=== PATIENT | male | born 1975 | race Caucasian/White ===

== ENCOUNTER 2016-07-27 08:38 | Inpatient (IN) | payer MEDICARE ==
[~2016-07-27] VITALS: Ht 177.8 cm; Wt 97.1 kg
[~2016-07-27 08:38] MED LIST: NO MEDS
[2016-07-27] MEDS ORDERED: SODIUM CHLORIDE 0.9% 1L BAG IV* STA (08:59)
[2016-07-27] MEDS ORDERED: VANCOMYCIN 1 GM (PMX) 250 ML IVPB STA ×2 (08:59→15:57)
[2016-07-27] MEDS ORDERED: CLINDAMYCIN 900 MG/D5W (PMX) 50 ML IVPB STA (08:59)
[2016-07-27] MEDS ORDERED: PIPER-TAZO 3.375 GM IV (PMX) 100 ML IVPB STA (08:59)
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
[2016-07-27 09:26] LABS: ADD SCAN DIFF NO
[2016-07-27 09:33] LABS: ABNORMAL IP MESSAGE 1; HEMATOCRIT 44.7 % (42.0-52.0); MEAN CORPUSCULAR HEMOGLOBIN 32.6 pg (29.0-33.0); MEAN CORPUSCULAR HGB CONC 35.8 g/dl (32.0-37.0); MEAN PLATELET VOLUME 10.8 fl (7.4-10.4); PLATELET COUNT 217 10^3/UL (140-415); RED BLOOD COUNT 4.91 10^6/ul (4.70-6.10)
[2016-07-27 09:39] LABS: ALBUMIN 4.1 g/dl (3.3-4.9); INR 1.11; PROTIME 14.3 Sec (12.2-14.2); PT RATIO 1.1
[2016-07-27 09:41] LABS: BILIRUBIN,INDIRECT 0.7 mg/dl (0-1.1); BILIRUBIN,TOTAL 0.7 mg/dl (0.2-1.3); CREATININE 0.89 mg/dl (0.61-1.24)
[2016-07-27 09:42] LABS: ALBUMIN/GLOBULIN RATIO 0.95; CALCIUM 9.6 mg/dl (8.4-10.2); TOTAL PROTEIN 8.4 g/dl (6.1-8.1)
--- NOTE | 2016-07-27 10:09 | RADRPT ---
PROCEDURE: US DVT. CLINICAL INDICATION: Left lower extremity pain and swelling. TECHNIQUE: Multiple longitudinal and transverse images of the left lower extremity veins were obta ined with miller scale and color Doppler imaging. 2D grayscale measurements with compression, color D oppler flow, and augmentation was performed. The calf veins were interrogated as well. COMPARISON: No prior studies are available for comparison. FINDINGS: The left common femoral, superficial femoral and popliteal veins are normally compressible throughou t. Color flow demonstrates normal filling of the vessel. Normal waveforms are visualized and there is normal response to augmentation. IMPRESSION: 1. No evidence of a deep vein thrombosis involving the left lower extremity. RPTAT: [facility] Physician Lali Date Time Electronically viewed and signed by Physician Lali on 07/27/2016 10:09 /
[2016-07-27 10:24] LABS: MONOCYTE # 0.5 10^3/ul (0.3-0.9); NEUTROPHIL # 21.9 10^3/ul (1.6-7.5)
[2016-07-27 10:50] VITALS: TEMP 97.8
[2016-07-27] MEDS ORDERED: ONDANSETRON 4 MG INJ IV PRN ×2 (11:30→16:00)
[2016-07-27] MEDS ORDERED: ACETAMINOPHEN 325 MG TAB PO PRN ×2 (11:30→16:00)
[2016-07-27 12:30] VITALS: Ht 177.8 cm; Wt 97.1 kg
[2016-07-27 12:56] VITALS: BP 145/81; PULSE 89; RESP 20
[2016-07-27] MEDS ORDERED: DOCUSATE SODIUM 100 MG CAP PO PRN (16:00)
[2016-07-27] MEDS ORDERED: NACL 0.9% 3 ML SYG IV SCH (16:00)
[2016-07-27] MEDS ORDERED: LORAZEPAM 0.5 MG TAB PO PRN (16:00)
[2016-07-27] MEDS ORDERED: VANCOMYCIN IV PER PHARMACY XX SCH (16:00)
[2016-07-27] MEDS: SOD CHLORIDE 0.45% 1,000 ML IV SCH (16:11)
--- NOTE | 2016-07-27 17:10 | HP ---
DATE OF ADMISSION: 07/27/2016 TRAVEL GUIDE: Infectious disease. CHIEF COMPLAINT: Left lower extremity cellulitis. HISTORY OF PRESENT ILLNESS: This is a 41-year-old gentleman with past medical history of IV drug ab use in remission, history cervical spine abscess status post surgical intervention, and paraplegia w ho has been able to ambulate with physical therapy for the past year and who presents to [facility] secondary to having left lower extremity cellulitis with fever. The patient also has been complaining of having generalized weakness for the past week. He denies having any drug ab use since his neck surgery. He has been sober. He smokes about 1 pack of cigarettes every 3 days. He lives at home and sleeps on the couch at his parents' house. There is a pet. They have a cat t hat has been declawed. He does not recall any trauma to his left lower extremity. Upon arrival to emergency room, the patient was found to have WBC of 26.7. He was treated with vancomycin, clindamy luis, and Zosyn. He denies having any chest pain, shortness of breath, nausea, vomiting, or diarrhea . No headache, dizziness, lightheadedness. No change in visual acuity, diplopia, photophobia. No abdominal pain, nausea, vomiting, diarrhea. No headache, dizziness, lightheadedness. No change in visual acuity, diplopia, photophobia, or any other discomfort. On lower extremity Doppler, there wa s no evidence of DVT involving the left lower extremity. X-ray of the foot is pending. PAST MEDICAL AND SURGICAL HISTORY: As above per HPI. ALLERGIES: NO KNOWN DRUG ALLERGIES. HOME MEDICATIONS: Methadone. FAMILY HISTORY: Noncontributory. SOCIAL HISTORY: Positive for smoking 8 to 10 cigarettes per day. No alcohol. History of drug abus e, heroin abuse in remission. REVIEW OF SYSTEMS: As above per HPI. Otherwise, 12 review of systems has been found to be negative . PHYSICAL EXAMINATION: VITAL SIGNS: Temperature 98.5, pulse 89, respiration 20, blood pressure 145/81, oxygen 94% room air . GENERAL APPEARANCE: The patient is lying in bed comfortably without any distress. He is awake, shashank rt, oriented. He is able to answer my questions properly. EYES AND ENT: Conjunctivae and lids are normal. Pupils are normal. Extraocular normal. Hearing g rossly normal. Lips and gums are normal. Oral mucosa is moist. NECK: Supple. Trachea is midline. No lymphadenopathy. RESPIRATORY: Effort is normal. Clear to auscultation bilaterally. CARDIOVASCULAR: Normal S1, S2. Regular rhythm and rate. No murmur, no bruits, no edema. Peripher al pulses 2+ palpable. Cap refill is normal. CHEST: Normal expansion of thorax during inspiration. GASTROINTESTINAL: Abdomen is soft, nontender, not distended. Bowel sounds present. No guarding, n o rebound. GENITOURINARY: Deferred. MUSCULOSKELETAL: Upper extremities within normal limits. Right lower extremity within normal limit s. Left lower extremity, there is erythema by his ankle. It is 10 cm. It goes around his ankle. There is no compartment syndrome. It is tender to touch. NEUROLOGIC: Cranial nerves II through XII are grossly intact. PSYCHIATRIC: Normal judgment and insight. Alert and oriented x3. Mood and affect is normal. LABORATORY WORK AND IMAGING: Sodium 138, potassium 4.0, chloride 99, bicarbonate 24, BUN 13, creati nine 0.9, glucose 114, calcium 9.6. WBC 26.7, hemoglobin 16, hematocrit 44.7, platelet 217. ASSESSMENT AND PLAN: 1. Left lower extremity cellulitis with leukocytosis. We will obtain an x-ray of the foot to rule out osteomyelitis. The patient has been started on vancomycin and Zosyn. We will obtain infectious disease consultation if necessary. 2. History of drug abuse in remission. Continue methadone. 3. For deep venous thrombosis prophylaxis, we will place the patient on aspirin. 4. For gastrointestinal prophylaxis, on Pepcid. 5. We will continue to monitor patient closely. Further recommendations, management, and treatment as per clinical course. Total amount of time spent for evaluation of this patient and admission workup was 40 minutes. Dictated By: AYAKA LARKIN/JODIE Conf#: [id number] DID#: [id number]
[2016-07-27] MEDS: morphine 2 MG INJ IV PRN (19:56)
[2016-07-27] MEDS: FAMOTIDINE 20 MG TAB PO SCH (19:56)
[2016-07-27 20:52] VITALS: BP 138/89; RESP 20
[2016-07-27] MEDS: PIPER-TAZO 3.375 GM IV (PMX) 100 ML IVPB SCH (21:20)
[2016-07-28] MEDS: PIPER-TAZO 3.375 GM IV (PMX) 100 ML IVPB SCH ×3 (05:05→21:14)
[2016-07-28] MEDS: SOD CHLORIDE 0.45% 1,000 ML IV SCH ×2 (05:20→15:34)
[2016-07-28] MEDS: VANCOMYCIN 1.5 GM in SOD CHLORIDE 0.9% 250 ML IVPB SCH ×2 (05:33→17:53)
[2016-07-28 05:48] LABS: ADD SCAN DIFF NO
[2016-07-28 05:54] LABS: BASOPHILS % 0.3 % (0.0-2.0); EOSINOPHILS # 0.1 10^3/ul (0.0-0.5); EOSINOPHILS % 0.4 % (0.0-7.0); HEMATOCRIT 43.4 % (42.0-52.0); HEMOGLOBIN 14.9 g/dl (14.0-18.0); LYMPHOCYTES # 2.6 10^3/ul (0.8-2.9); LYMPHOCYTES % 17.5 % (15.0-51.0); MEAN CORPUSCULAR HEMOGLOBIN 32.3 pg (29.0-33.0); MEAN CORPUSCULAR HGB CONC 34.3 g/dl (32.0-37.0); MEAN CORPUSCULAR VOLUME 93.9 fl (82.0-101.0); MEAN PLATELET VOLUME 11.2 fl (7.4-10.4); MONOCYTE # 1.3 10^3/ul (0.3-0.9); MONOCYTES % 8.7 % (0.0-11.0); NEUTROPHIL # 10.9 10^3/ul (1.6-7.5); NEUTROPHILS % 72.6 % (39.0-77.0); PLATELET COUNT 142 10^3/UL (140-415); RED BLOOD COUNT 4.62 10^6/ul (4.70-6.10); RED CELL DISTRIBUTION WIDTH 13.1 % (11.5-14.5)
[2016-07-28 05:55] LABS: ALBUMIN 3.6 g/dl (3.3-4.9)
[2016-07-28 05:56] LABS: POTASSIUM 4.1 mmol/L (3.5-5.1)
[2016-07-28 05:58] LABS: ALBUMIN/GLOBULIN RATIO 0.87; BILIRUBIN,INDIRECT 0.3 mg/dl (0-1.1); BILIRUBIN,TOTAL 0.3 mg/dl (0.2-1.3); CREATININE 0.72 mg/dl (0.61-1.24); TOTAL PROTEIN 7.7 g/dl (6.1-8.1)
[2016-07-28 05:59] LABS: CALCIUM 8.8 mg/dl (8.4-10.2); MAGNESIUM 1.8 mg/dl (1.7-2.5)
[2016-07-28 08:06] VITALS: BP 124/81; RESP 21
[2016-07-28 08:07] VITALS: BP 120/75; RESP 20
[2016-07-28] MEDS: ASPIRIN 81 MG TAB PO SCH (08:52)
[2016-07-28] MEDS: FAMOTIDINE 20 MG TAB PO SCH ×2 (08:52→21:14)
[2016-07-28] MEDS: METHADONE 10 MG TAB PO SCH (08:52)
--- NOTE | 2016-07-28 09:21 | RADRPT ---
PROCEDURE: XR Left Ankle. CLINICAL INDICATION: Left ankle pain. Postop. TECHNIQUE: 2 views. Frontal and lateral. COMPARISON: None. FINDINGS: There has been open reduction and internal fixation of the distal fibula with a lateral plate and mu ltiple screws. There is a healed fracture at this site. There is no new fracture. There is no dis location. The soft tissues are normal. There are degenerative changes of the tibiotalar joint with osteophytes noted. There is no lytic or blastic lesion. IMPRESSION: 1. Satisfactory postoperative appearance of the left ankle. RPTAT: QQ .Justin Cavazos MD, MD Date Time Electronically viewed and signed by .Justin Cavazos MD, MD on 07/28/2016 09:21 .R/
--- NOTE | 2016-07-28 16:23 | PN ---
Date/Time of Note Date/Time of Note DATE: 07/28/16 TIME: 16:21 Assessment/Plan VTE Prophylaxis VTE Prophylaxis Intervention: other Lines/Catheters IV [facility] Type [facility] Peripheral IV Assessment/Plan Chief Complaint/Hosp Course ASSESSMENT AND PLAN: 1. Left lower extremity cellulitis with leukocytosis. No evidence of osteomyelitis on ankle x-ray. The patient has been started on vancomycin and Zosyn. We will obtain infectious disease consultation 2. History of drug abuse in remission. Continue methadone. 3. For deep venous thrombosis prophylaxis, continue aspirin. 4. For gastrointestinal prophylaxis, on Pepcid. . We will continue to monitor patient closely. Further recommendations, management, and treatment as per clinical course. Problems: Subjective 24 Hr Interval Summary Free Text/Dictation Patient continues to complain of having left lower extremity swelling and discomfort Denies of any chest pain or shortness of breath Tolerating oral intake Exam/Review of Systems Vital Signs Vitals Vital Signs Date Time Temp Pulse Resp B/P Pulse Ox O2 Delivery O2 Flow Rate FiO2 07/28/16 08:07 98.0 93 20 120/75 98 07/27/16 12:56 Room Air Intake and Output 07/27/16 07/27/16 07/28/16 14:59 22:59 06:59 Intake Total 1275 ml 1300 ml Output Total 450 ml Balance 1275 ml 850 ml Exam General: The patient is well-developed, Not in acute distress. HEENT: Atraumatic, normocephalic. The pupils are equal and round . Neck: Supple with full range of motion. Chest: Normal expansion of the thorax during inspiration Lungs: Clear to auscultation bilaterally Heart: Normal S1-S2, Regular rhythm and rate. Abdomen: Soft , nontender, nondistended , bowel sounds are present. Extremities: Left ankle swelling and erythema improving from yesterday, positive edema no cyanosis Neurologic: Normal mental status,The patient is awake, alert and oriented . Results Result Diagram: 07/28/16 0455 07/28/16 0455 Results 24 hrs Laboratory Tests Test 07/27/16 22:10 07/28/16 04:55 Lactic Acid Level 0.9 Alanine Aminotransferase (ALT/SGPT) 50 Albumin 3.6 Albumin/Globulin Ratio 0.87 Alkaline Phosphatase 83 Anion Gap 15 Aspartate Amino Transf (AST/SGOT) 40 Basophils # 0.0 Basophils % 0.3 Blood Urea Nitrogen 9 Calcium Level 8.8 Carbon Dioxide Level 26 Chloride Level 100 Creatinine 0.72 Direct Bilirubin 0.00 Eosinophils # 0.1 Eosinophils % 0.4 Globulin 4.10 H Glucose Level 98 Hematocrit 43.4 Hemoglobin 14.9 Hemoglobin A1c 5.2 Indirect Bilirubin 0.3 Lymphocytes # 2.6 Lymphocytes % 17.5 Magnesium Level 1.8 Mean Corpuscular Hemoglobin 32.3 Mean Corpuscular Hemoglobin Concent 34.3 Mean Corpuscular Volume 93.9 Mean Platelet Volume 11.2 H Monocytes # 1.3 H Monocytes % 8.7 Neutrophils # 10.9 H Neutrophils % 72.6 Nucleated Red Blood Cells # 0.0 Nucleated Red Blood Cells % 0.0 Platelet Count 142 # Potassium Level 4.1 Red Blood Count 4.62 L Red Cell Distribution Width 13.1 Sodium Level 137 Total Bilirubin 0.3 Total Protein 7.7 White Blood Count 15.0 #H Medications Medications Current Medications Piperacillin Sod/ Tazobactam Sod 100 ml @ 200 mls/hr Q8 IVPB Last administered on 07/28/16 13:32; Admin Dose 200 MLS/HR; Start 07/27/16 at 22:00 Sodium Chloride (1/2 NS) 1,000 ml @ 75 mls/hr [id number] IV Last administered on 07/28/16 15:34; Admin Dose 75 MLS/HR; Start 07/27/16 at 16:00 Lorazepam (Ativan) 0.5 mg Q8H PRN PO ANXIETY; Start 07/27/16 at 16:00 Ondansetron HCl (Zofran Inj) 4 mg Q6H PRN IV NAUSEA AND/OR VOMITING; Start at 16:00 Acetaminophen (Tylenol Tab) 650 mg Q6H PRN PO PAIN LEVEL 1-3 OR FEVER Last administered on 07/27/16 19:56; Admin Dose 650 MG; Start 07/27/16 at 16:00 Oxycodone/ Acetaminophen (Percocet (5/ 325)) 1 tab Q6H PRN PO PAIN LEVEL 4-6; Start 07/27/16 at 16:00 Morphine Sulfate (morphine) 1 mg Q4H PRN IV PAIN LEVEL 7-10 Last administered on 07/27/16 19:56; Admin Dose 1 MG; Start 07/27/16 at 16:00 Docusate Sodium (Colace) 100 mg Q12H PRN PO CONSTIPATION; Start 07/27/16 at 16: 00 Bisacodyl (Dulcolax) 5 mg DAILY PRN PO CONSTIPATION; Start 07/27/16 at 16:00 Famotidine 20 mg 20 mg Q12 PO Last administered on 07/28/16 08:52; Admin Dose 20 MG; Start 07/27/16 at 21:00 Vancomycin HCl/ Sodium Chloride (Vancocin/NS) 250 ml @ 83.333 mls/ hr Q12H IVPB Last administered on 07/28/16 05:33; Admin Dose 83.333 MLS/HR; Start at 04:30 Methadone HCl (Methadone) 100 mg DAILY PO Last administered on 07/28/16 08:52 ; Admin Dose 100 MG; Start 07/28/16 at 09:00 Aspirin (Aspirin) 81 mg DAILY PO Last administered on 07/28/16 08:52; Admin Dose 81 MG; Start 07/28/16 at 09:00 Miscellaneous Information (*Rx Drug Level Order Reminder*) 1 ONCE ONCE XX ; Start 07/29/16 at 03:30; Stop 07/29/16 at 03:31 AYAKA RIZZO MD Jul 28, 2016 16:23
--- NOTE | 2016-07-28 16:46 | PN ---
DATE: 07/28/2016 INFECTIOUS DISEASE PROGRESS NOTE SUBJECTIVE: Patient is alert, lying comfortably in bed. No fevers. Vital signs stable. WBC today 15. No shift, no bands. BUN 9, creatinine 0.72. MICROBIOLOGY: Cultures, preliminary negative. Wound culture pending. ANTIMICROBIALS: The patient is on IV vancomycin and Zosyn. PHYSICAL EXAMINATION: GENERAL: Obese, well-developed, middle-aged man, who is alert, in no distress. HEENT: Head atraumatic, normocephalic. Sclerae are anicteric. Buccal mucosa pink. NECK: Supple. CHEST: Chest rise is symmetrical. Breath sounds clear. HEART: S1, S2. ABDOMEN: Soft, bowel tones present. EXTREMITIES: With left lower extremity edema and erythema, with some fluctuance. ASSESSMENT: 1. Left lower extremity cellulitis. Rule out abscess. 2. Systemic inflammatory response syndrome. 3. History of drug abuse, in remission, on methadone. PLAN: The patient remains stable. White blood cell count tracing down. Continue antibiotics. Kevan p lower extremities elevated. Consider podiatry evaluation. Dictated By: YOSELIN BLAKE [employer]ENDER for MINERVA VALIENTE MD NI/NTS Conf#: [id number] DID#: [id number]
[2016-07-28] MEDS: OXYCODONE/ACETAMINOPHEN (5/325) TAB PO PRN (19:13)
[2016-07-28 21:16] VITALS: BP 121/74; RESP 16
[2016-07-29 03:46] LABS: ADD SCAN DIFF NO
[2016-07-29 03:49] LABS: BASOPHILS % 0.2 % (0.0-2.0); EOSINOPHILS # 0.3 10^3/ul (0.0-0.5); HEMATOCRIT 36.8 % (42.0-52.0); HEMOGLOBIN 12.8 g/dl (14.0-18.0); LYMPHOCYTES # 2.7 10^3/ul (0.8-2.9); LYMPHOCYTES % 32.1 % (15.0-51.0); MEAN CORPUSCULAR HEMOGLOBIN 32.3 pg (29.0-33.0); MEAN CORPUSCULAR HGB CONC 34.8 g/dl (32.0-37.0); MEAN CORPUSCULAR VOLUME 92.9 fl (82.0-101.0); MEAN PLATELET VOLUME 10.2 fl (7.4-10.4); MONOCYTES % 11.5 % (0.0-11.0); NEUTROPHIL # 4.4 10^3/ul (1.6-7.5); PLATELET COUNT 165 10^3/UL (140-415); RED BLOOD COUNT 3.96 10^6/ul (4.70-6.10); RED CELL DISTRIBUTION WIDTH 13.1 % (11.5-14.5); WHITE BLOOD COUNT 8.4 10^3/ul (4.8-10.8)
[2016-07-29] MEDS: morphine 2 MG INJ IV PRN ×4 (03:58→23:00)
[2016-07-29 04:11] LABS: POTASSIUM 3.3 mmol/L (3.5-5.1)
[2016-07-29 04:13] LABS: CREATININE 0.57 mg/dl (0.61-1.24)
[2016-07-29 04:14] LABS: CALCIUM 8.2 mg/dl (8.4-10.2)
[2016-07-29] MEDS: VANCOMYCIN 1.5 GM in SOD CHLORIDE 0.9% 250 ML IVPB SCH (04:57)
[2016-07-29] MEDS: PIPER-TAZO 3.375 GM IV (PMX) 100 ML IVPB SCH ×2 (05:23→15:43)
[2016-07-29 07:15] VITALS: BP 125/72; RESP 16
[2016-07-29] MEDS: SOD CHLORIDE 0.45% 1,000 ML IV SCH ×2 (08:00→21:20)
[2016-07-29] MEDS: METHADONE 10 MG TAB PO SCH (08:01)
[2016-07-29] MEDS: ASPIRIN 81 MG TAB PO SCH (08:01)
[2016-07-29] MEDS: FAMOTIDINE 20 MG TAB PO SCH ×2 (08:01→20:17)
[2016-07-29] MEDS: BISACODYL (EC) 5 MG TAB PO PRN (08:01)
[2016-07-29] MEDS: VANCOMYCIN 1.25 GM in SOD CHLORIDE 0.9% 250 ML IVPB SCH ×2 (12:14→20:16)
--- NOTE | 2016-07-29 12:29 | PN ---
Date/Time of Note Date/Time of Note DATE: 07/29/16 TIME: 12:23 Assessment/Plan VTE Prophylaxis VTE Prophylaxis Intervention: other Lines/Catheters IV [facility] (from [facility] Peripheral IV Assessment/Plan Chief Complaint/Hosp Course ASSESSMENT AND PLAN: 1. Left lower extremity cellulitis with leukocytosis. No evidence of osteomyelitis on ankle x-ray. The patient has been started on vancomycin and Zosyn. Infectious disease consulted 2. History of drug abuse in remission. Continue methadone. 3. For deep venous thrombosis prophylaxis, continue aspirin. 4. For gastrointestinal prophylaxis, on Pepcid. . We will continue to monitor patient closely. Further recommendations, management, and treatment as per clinical course. Problems: Subjective 24 Hr Interval Summary Free Text/Dictation Patient denies any chest pain or shortness of breath Improvement in left lower extremity erythema Tolerating oral intake Exam/Review of Systems Vital Signs Vitals Vital Signs Date Time Temp Pulse Resp B/P Pulse Ox O2 Delivery O2 Flow Rate FiO2 07/29/16 07:15 98.5 74 16 125/72 96 07/27/16 12:56 Room Air Intake and Output 07/28/16 07/28/16 07/29/16 15:00 23:00 07:00 Intake Total 450 ml 1930 ml 1305 ml Balance 450 ml 1930 ml 1305 ml Exam General: The patient is well-developed, Not in acute distress. HEENT: Atraumatic, normocephalic. The pupils are equal and round . Neck: Supple with full range of motion. Chest: Normal expansion of the thorax during inspiration Lungs: Clear to auscultation bilaterally Heart: Normal S1-S2, Regular rhythm and rate. Abdomen: Soft , nontender, nondistended , bowel sounds are present. Extremities: Left lower extremity erythema minimally improved, no edema no cyanosis Neurologic: Normal mental status,The patient is awake, alert and oriented . Results Result Diagram: 07/29/16 0335 07/29/16 033 Results 24 hrs Laboratory Tests Test 07/29/16 03:35 Anion Gap 12 Basophils # 0.0 Basophils % 0.2 Blood Urea Nitrogen 6 L Calcium Level 8.2 L Carbon Dioxide Level 27 Chloride Level 103 Creatinine 0.57 L Eosinophils # 0.3 Eosinophils % 4.0 Glucose Level 122 Hematocrit 36.8 L Hemoglobin 12.8 L Lymphocytes # 2.7 Lymphocytes % 32.1 Mean Corpuscular Hemoglobin 32.3 Mean Corpuscular Hemoglobin Concent 34.8 Mean Corpuscular Volume 92.9 Mean Platelet Volume 10.2 Monocytes # 1.0 H Monocytes % 11.5 H Neutrophils # 4.4 Neutrophils % 52.0 Nucleated Red Blood Cells # 0.0 Nucleated Red Blood Cells % 0.0 Platelet Count 165 Potassium Level 3.3 L Red Blood Count 3.96 L Red Cell Distribution Width 13.1 Sodium Level 139 Vancomycin Level Trough 8.0 L White Blood Count 8.4 # Medications Medications Current Medications Piperacillin Sod/ Tazobactam Sod 100 ml @ 200 mls/hr Q8 IVPB Last administered on 07/29/16 05:23; Admin Dose 200 MLS/HR; Start 07/27/16 at 22:00 Sodium Chloride (1/2 NS) 1,000 ml @ 75 mls/hr [id number] IV Last administered on 07/28/16 15:34; Admin Dose 75 MLS/HR; Start 07/27/16 at 16:00 Lorazepam (Ativan) 0.5 mg Q8H PRN PO ANXIETY; Start 07/27/16 at 16:00 Ondansetron HCl (Zofran Inj) 4 mg Q6H PRN IV NAUSEA AND/OR VOMITING; Start at 16:00 Acetaminophen (Tylenol Tab) 650 mg Q6H PRN PO PAIN LEVEL 1-3 OR FEVER Last administered on 07/27/16 19:56; Admin Dose 650 MG; Start 07/27/16 at 16:00 Oxycodone/ Acetaminophen (Percocet (5/ 325)) 1 tab Q6H PRN PO PAIN LEVEL 4-6 Last administered on 07/28/16 19:13; Admin Dose 1 TAB; Start 07/27/16 at 16:00 Morphine Sulfate (morphine) 1 mg Q4H PRN IV PAIN LEVEL 7-10 Last administered on 07/29/16 07:56; Admin Dose 1 MG; Start 07/27/16 at 16:00 Docusate Sodium (Colace) 100 mg Q12H PRN PO CONSTIPATION; Start 07/27/16 at 16: 00 Bisacodyl (Dulcolax) 5 mg DAILY PRN PO CONSTIPATION Last administered on 08:01; Admin Dose 5 MG; Start 07/27/16 at 16:00 Famotidine (Pepcid) 20 mg Q12 PO Last administered on 07/29/16 08:01; Admin Dose 20 MG; Start 07/27/16 at 21:00 Methadone HCl (Methadone) 100 mg DAILY PO Last administered on 07/29/16 08:01 ; Admin Dose 100 MG; Start 07/28/16 at 09:00 Aspirin 81 mg 81 mg DAILY PO Last administered on 07/29/16 08:01; Admin Dose 81 MG; Start 07/28/16 at 09:00 Vancomycin HCl/ Sodium Chloride (Vancocin/NS) 250 ml @ 83.333 mls/ hr Q8H IVPB Last administered on 07/29/16 12:14; Admin Dose 83.333 MLS/HR; Start at 12:30 AYAKA RIZZO MD Jul 29, 2016 12:29
--- NOTE | 2016-07-29 15:57 | CONS ---
Date/Time of Note Date/Time of Note DATE: 07/29/16 TIME: 15:57 Assessment/Plan Assessment/Plan Chief Complaint/Hosp Course SUBJECTIVE: Patient is alert, lying comfortably in bed. No fevers. Vital signs stable. MICROBIOLOGY: Cultures, preliminary negative. Wound culture +strep/Staph. ANTIMICROBIALS: The patient is on IV vancomycin and Zosyn. PHYSICAL EXAMINATION: GENERAL: Obese, well-developed, middle-aged man, who is alert, in no distress. HEENT: Head atraumatic, normocephalic. Sclerae are anicteric. Buccal mucosa pink. NECK: Supple. CHEST: Chest rise is symmetrical. Breath sounds clear. HEART: S1, S2. ABDOMEN: Soft, bowel tones present. EXTREMITIES: With left lower extremity edema and erythema, with some fluctuance. ASSESSMENT: 1. Left lower extremity cellulitis. Rule out abscess. 2. Systemic inflammatory response syndrome. 3. History of drug abuse, in remission, on methadone. PLAN: The patient remains stable. White blood cell count tracing down. Continue Vanco, change Zosyn to Rocephin. Keep lower extremities elevated. Consider podiatry evaluation. staff Problems: Consultation Date/Type/Reason Admit Date/Time Jul 27, 2016 at 11:15 Initial Consult Date Type of Consultation: ID Exam/Review of Systems Vital Signs Vitals Vital Signs Date Time Temp Pulse Resp B/P Pulse Ox O2 Delivery O2 Flow Rate FiO2 07/29/16 07:15 98.5 74 16 125/72 96 07/27/16 12:56 Room Air Intake and Output 07/28/16 07/28/16 07/29/16 15:00 23:00 07:00 Intake Total 450 ml 1930 ml 1305 ml Balance 450 ml 1930 ml 1305 ml Results Result Diagram: 07/29/16 0335 07/29/16 0335 Results 24 hrs Laboratory Tests Test 07/29/16 03:35 Anion Gap 12 Basophils # 0.0 Basophils % 0.2 Blood Urea Nitrogen 6 L Calcium Level 8.2 L Carbon Dioxide Level 27 Chloride Level 103 Creatinine 0.57 L Eosinophils # 0.3 Eosinophils % 4.0 Glucose Level 122 Hematocrit 36.8 L Hemoglobin 12.8 L Lymphocytes # 2.7 Lymphocytes % 32.1 Mean Corpuscular Hemoglobin 32.3 Mean Corpuscular Hemoglobin Concent 34.8 Mean Corpuscular Volume 92.9 Mean Platelet Volume 10.2 Monocytes # 1.0 H Monocytes % 11.5 H Neutrophils # 4.4 Neutrophils % 52.0 Nucleated Red Blood Cells # 0.0 Nucleated Red Blood Cells % 0.0 Platelet Count 165 Potassium Level 3.3 L Red Blood Count 3.96 L Red Cell Distribution Width 13.1 Sodium Level 139 Vancomycin Level Trough 8.0 L White Blood Count 8.4 # Medications Medications Current Medications Piperacillin Sod/ Tazobactam Sod 100 ml @ 200 mls/hr Q8 IVPB Last administered on 07/29/16 15:43; Admin Dose 200 MLS/HR; Start 07/27/16 at 22:00 Sodium Chloride (1/2 NS) 1,000 ml @ 75 mls/hr [id number] IV Last administered on 07/28/16 15:34; Admin Dose 75 MLS/HR; Start 07/27/16 at 16:00 Lorazepam (Ativan) 0.5 mg Q8H PRN PO ANXIETY; Start 07/27/16 at 16:00 Ondansetron HCl (Zofran Inj) 4 mg Q6H PRN IV NAUSEA AND/OR VOMITING; Start at 16:00 Acetaminophen (Tylenol Tab) 650 mg Q6H PRN PO PAIN LEVEL 1-3 OR FEVER Last administered on 07/27/16 19:56; Admin Dose 650 MG; Start 07/27/16 at 16:00 Oxycodone/ Acetaminophen (Percocet (5/ 325)) 1 tab Q6H PRN PO PAIN LEVEL 4-6 Last administered on 07/28/16 19:13; Admin Dose 1 TAB; Start 07/27/16 at 16:00 Morphine Sulfate (morphine) 1 mg Q4H PRN IV PAIN LEVEL 7-10 Last administered on 07/29/16 07:56; Admin Dose 1 MG; Start 07/27/16 at 16:00 Docusate Sodium (Colace) 100 mg Q12H PRN PO CONSTIPATION; Start 07/27/16 at 16: 00 Bisacodyl (Dulcolax) 5 mg DAILY PRN PO CONSTIPATION Last administered on 08:01; Admin Dose 5 MG; Start 07/27/16 at 16:00 Famotidine (Pepcid) 20 mg Q12 PO Last administered on 07/29/16 08:01; Admin Dose 20 MG; Start 07/27/16 at 21:00 Methadone HCl (Methadone) 100 mg DAILY PO Last administered on 07/29/16 08:01 ; Admin Dose 100 MG; Start 07/28/16 at 09:00 Aspirin 81 mg 81 mg DAILY PO Last administered on 07/29/16 08:01; Admin Dose 81 MG; Start 07/28/16 at 09:00 Vancomycin HCl/ Sodium Chloride (Vancocin/NS) 250 ml @ 83.333 mls/ hr Q8H IVPB Last administered on 07/29/16 12:14; Admin Dose 83.333 MLS/HR; Start at 12:30 YOSELIN BLAKE NP Jul 29, 2016 15:57
[2016-07-29] MEDS: CEFTRIAXONE 1 GM/50 ML (PMX) 50 ML IVPB SCH (16:48)
[2016-07-29 20:20] VITALS: BP 121/75; RESP 19
[2016-07-30] MEDS: OXYCODONE/ACETAMINOPHEN (5/325) TAB PO PRN (01:27)
[2016-07-30] MEDS: VANCOMYCIN 1.25 GM in SOD CHLORIDE 0.9% 250 ML IVPB SCH ×3 (05:05→21:10)
[2016-07-30] MEDS: SOD CHLORIDE 0.45% 1,000 ML IV SCH (05:07)
[2016-07-30 05:08] LABS: ADD SCAN DIFF NO
[2016-07-30 05:19] LABS: BASOPHILS % 0.6 % (0.0-2.0); EOSINOPHILS # 0.4 10^3/ul (0.0-0.5); EOSINOPHILS % 5.1 % (0.0-7.0); HEMATOCRIT 38.8 % (42.0-52.0); HEMOGLOBIN 13.3 g/dl (14.0-18.0); LYMPHOCYTES # 2.4 10^3/ul (0.8-2.9); LYMPHOCYTES % 34.9 % (15.0-51.0); MEAN CORPUSCULAR HEMOGLOBIN 31.5 pg (29.0-33.0); MEAN CORPUSCULAR HGB CONC 34.3 g/dl (32.0-37.0); MEAN CORPUSCULAR VOLUME 91.9 fl (82.0-101.0); MEAN PLATELET VOLUME 10.2 fl (7.4-10.4); MONOCYTE # 0.9 10^3/ul (0.3-0.9); MONOCYTES % 12.8 % (0.0-11.0); NEUTROPHIL # 3.2 10^3/ul (1.6-7.5); NEUTROPHILS % 45.9 % (39.0-77.0); PLATELET COUNT 202 10^3/UL (140-415); RED BLOOD COUNT 4.22 10^6/ul (4.70-6.10); RED CELL DISTRIBUTION WIDTH 13.1 % (11.5-14.5); WHITE BLOOD COUNT 6.9 10^3/ul (4.8-10.8)
[2016-07-30] MEDS: morphine 2 MG INJ IV PRN ×4 (05:25→22:43)
[2016-07-30 05:52] LABS: POTASSIUM 3.5 mmol/L (3.5-5.1)
[2016-07-30 05:55] LABS: CREATININE 0.61 mg/dl (0.61-1.24)
[2016-07-30 05:56] LABS: CALCIUM 8.2 mg/dl (8.4-10.2)
--- NOTE | 2016-07-30 07:40 | CONS ---
DATE OF ADMISSION: 07/27/2016 DATE OF CONSULTATION: 07/27/2016 INFECTIOUS DISEASE CONSULTATION HISTORY OF PRESENT ILLNESS: The patient is a 41-year-old male who presents with a chief co mplaint of a 1-day history of redness and swelling of his left lower extremity. Upon arrival in the emergency room, he was not noted to have a temperature, but his white count was 26,600. He had no history of trauma, and developed redness and swelling the day prior to admission. He has history of IV drug abuse. He has no history of injury or insect bite, and has 2 swollen areas of blister on t he lateral posterior aspect of the left ankle and the anterolateral distal fourth of the left leg. The patient has a past medical history of spinal osteomyelitis which resulted in 1 year of hemipares is. He has a history of IV drug abuse and obesity. The patient has had cultures and sensitivities w hich grew group A strep and staphylococcal species. Blood cultures are negative so far, and the pat ient was initially begun treatment with vancomycin, Cleocin and Zosyn. PHYSICAL EXAMINATION GENERAL: Reveals an obese, alert and cooperative male lying in bed with his left foot elev ated. HEENT: Normal. NECK: Supple. CHEST: Clear to auscultation. HEART: Regular without gallop, murmur or rub. ABDOMEN: Soft. No palpable organs, mass or tenderness. EXTREMITIES: There is +3 swelling of the left lower extremity, especially the distal leg, ankle and foot. There is drainage from the anterior surface of the anteromedial surface of the left leg and a blister on the medial surface of the left ankle. There is diffuse erythema involving the dorsum of the foot, and +3 edema with extension to almost midcalf. The patient is somewhat tender and tends to have muscle spasm when the leg is elevated further. It is elevated at approximately 30 degrees. INITIAL IMPRESSION 1. Systemic inflammatory response. 2. Cellulitis, left ankle and distal leg, [place] group A Streptococcus pyogenes, Staphylococcus species. 3. Obesity. 4. Tobacco use. 5. History of IV drug use. RECOMMENDATIONS: I would treat the patient with vancomycin and change to ceftriaxone as the second drug until the culture and sensitivities have returned. Thank you very much for referring this patient to Dr. Yair Fernando. Dictated By: Tejal POZO/JODIE Conf#: [id number] [facility]#: [id number]
[2016-07-30 08:14] VITALS: BP 135/91; RESP 16
[2016-07-30 08:46] LABS: WHITE BLOOD COUNT 26.7 10^3/ul (4.8-10.8)
[2016-07-30] MEDS: ASPIRIN 81 MG TAB PO SCH (09:36)
[2016-07-30] MEDS: FAMOTIDINE 20 MG TAB PO SCH ×2 (09:37→21:10)
[2016-07-30] MEDS: METHADONE 10 MG TAB PO SCH (09:41)
--- NOTE | 2016-07-30 13:33 | PN ---
DATE: 07/30/2016 INTERNAL MEDICINE FOLLOWUP SUBJECTIVE: Chart reviewed. Events noted. ID recommendations noted. PHYSICAL EXAMINATION: VITAL SIGNS: Blood pressure 121/75, pulse 88, respirations 19, temperature 98.4, saturating 95%. HEENT: Pupils are equal and reactive to light. NECK: Supple, no JVD noted. No cervical adenopathy noted. No carotid bruits heard. LUNGS: Fair breath sounds bilaterally. CARDIOVASCULAR: S1, S2 normal. ABDOMEN: Soft, nontender. No organomegaly or masses noted. EXTREMITIES: 3+ swelling of left lower extremity noted. NEUROLOGICAL: No changes. LABORATORY DATA: WBC 6.9, hemoglobin 13.3, hematocrit 38.8, platelets 202. Sodium 141, potassium 3 .5, chloride 105, CO2 of 26, BUN 4, creatinine 0.61, glucose 113. Doppler of lower extremity was ne gative for acute DVT. IMPRESSION: 1. Left lower extremity cellulitis. 2. Systemic inflammatory response syndrome. 3. History of drug abuse. RECOMMENDATIONS: Continue antibiotics per ID recommendation. Dictated By: UMANG PEOPLES MD, MA/JODIE Conf#: [id number] DID#: [id number]
--- NOTE | 2016-07-30 16:31 | CONS ---
Date/Time of Note Date/Time of Note DATE: 07/30/16 TIME: 16:30 Assessment/Plan Assessment/Plan Chief Complaint/Hosp Course SUBJECTIVE: Patient is alert, lying comfortably in bed. No fevers. MICROBIOLOGY: Cultures, preliminary negative. Wound culture +strep/Staph. ANTIMICROBIALS: vancomycin and Rocephin PHYSICAL EXAMINATION: GENERAL: Obese, well-developed, middle-aged man, who is alert, in no distress. HEENT: Head atraumatic, normocephalic. Sclerae are anicteric. Buccal mucosa pink. NECK: Supple. CHEST: Chest rise is symmetrical. Breath sounds clear. HEART: S1, S2. ABDOMEN: Soft, bowel tones present. EXTREMITIES: With left lower extremity edema and erythema, with some fluctuance. ASSESSMENT: 1. Left lower extremity cellulitis, poss abscess. 2. Systemic inflammatory response syndrome. 3. History of drug abuse, in remission, on methadone. PLAN: The patient remains stable. Dc Vanco, continue Rocephin. Keep lower extremities elevated. Consider podiatry evaluation. [facility] staff Problems: Consultation Date/Type/Reason Admit Date/Time Jul 27, 2016 at 11:15 Type of Consultation: ID Exam/Review of Systems Vital Signs Vitals Vital Signs Date Time Temp Pulse Resp B/P Pulse Ox O2 Delivery O2 Flow Rate FiO2 07/30/16 08:14 98.5 80 16 135/91 98 07/27/16 12:56 Room Air Intake and Output 07/29/16 07/29/16 07/30/16 15:00 23:00 07:00 Intake Total 250 ml 2009 ml 825 ml Balance 250 ml 2010 ml 825 ml Results Result Diagram: 07/30/16 0445 07/30/16 0445 Results 24 hrs Laboratory Tests Test 07/30/16 04:45 Anion Gap 14 Basophils # 0.0 Basophils % 0.6 Blood Urea Nitrogen 4 L Calcium Level 8.2 L Carbon Dioxide Level 26 Chloride Level 105 Creatinine 0.61 Eosinophils # 0.4 Eosinophils % 5.1 Glucose Level 113 Hematocrit 38.8 L Hemoglobin 13.3 L Lymphocytes # 2.4 Lymphocytes % 34.9 Mean Corpuscular Hemoglobin 31.5 Mean Corpuscular Hemoglobin Concent 34.3 Mean Corpuscular Volume 91.9 Mean Platelet Volume 10.2 Monocytes # 0.9 Monocytes % 12.8 H Neutrophils # 3.2 Neutrophils % 45.9 Nucleated Red Blood Cells # 0.0 Nucleated Red Blood Cells % 0.0 Platelet Count 202 # Potassium Level 3.5 Red Blood Count 4.22 L Red Cell Distribution Width 13.1 Sodium Level 141 White Blood Count 6.9 Medications Medications Current Medications Sodium Chloride (1/2 NS) 1,000 ml @ 75 mls/hr [id number] IV Last administered on 07/30/16 05:07; Admin Dose 75 MLS/HR; Start 07/27/16 at 16:00 Lorazepam (Ativan) 0.5 mg Q8H PRN PO ANXIETY; Start 07/27/16 at 16:00 Ondansetron HCl (Zofran Inj) 4 mg Q6H PRN IV NAUSEA AND/OR VOMITING; Start at 16:00 Acetaminophen (Tylenol Tab) 650 mg Q6H PRN PO PAIN LEVEL 1-3 OR FEVER Last administered on 07/27/16 19:56; Admin Dose 650 MG; Start 07/27/16 at 16:00 Oxycodone/ Acetaminophen (Percocet (5/ 325)) 1 tab Q6H PRN PO PAIN LEVEL 4-6 Last administered on 07/30/16 01:27; Admin Dose 1 TAB; Start 07/27/16 at 16:00 Morphine Sulfate (morphine) 1 mg Q4H PRN IV PAIN LEVEL 7-10 Last administered on 07/30/16 10:47; Admin Dose 1 MG; Start 07/27/16 at 16:00 Docusate Sodium (Colace) 100 mg Q12H PRN PO CONSTIPATION; Start 07/27/16 at 16: 00 Bisacodyl (Dulcolax) 5 mg DAILY PRN PO CONSTIPATION Last administered on 08:01; Admin Dose 5 MG; Start 07/27/16 at 16:00 Famotidine (Pepcid) 20 mg Q12 PO Last administered on 07/30/16 09:37; Admin Dose 20 MG; Start 07/27/16 at 21:00 Methadone HCl (Methadone) 100 mg DAILY PO Last administered on 07/30/16 09:41 ; Admin Dose 100 MG; Start 07/28/16 at 09:00 Aspirin 81 mg 81 mg DAILY PO Last administered on 07/30/16 09:36; Admin Dose 81 MG; Start 07/28/16 at 09:00 Vancomycin HCl 1.25 gm/Sodium Chloride 250 ml @ 83.333 mls/ hr Q8H IVPB Last administered on 07/30/16 12:46; Admin Dose 83.333 MLS/HR; Start 07/29/16 at 12: 30 Ceftriaxone Sodium (Rocephin) 50 ml @ 100 mls/hr Q24H IVPB Last administered on 07/29/16 16:48; Admin Dose 100 MLS/HR; Start 07/29/16 at 17:00 Miscellaneous Information (*Rx Drug Level Order Reminder*) VANCOMYCIN TROUGH AT 1930 ONCE ONCE XX ; Start 07/30/16 at 19:30; Stop 07/30/16 at 19:31 YOSELIN BLAKE NP Jul 30, 2016 16:31
[2016-07-30] MEDS: CEFTRIAXONE 1 GM/50 ML (PMX) 50 ML IVPB SCH (17:00)
[2016-07-30 21:10] VITALS: BP 139/81; RESP 18
[2016-07-31] MEDS: morphine 2 MG INJ IV PRN ×4 (03:28→21:50)
[2016-07-31] MEDS: VANCOMYCIN 1.25 GM in SOD CHLORIDE 0.9% 250 ML IVPB SCH ×2 (03:29→11:38)
[2016-07-31] MEDS: FAMOTIDINE 20 MG TAB PO SCH ×2 (08:13→20:31)
[2016-07-31] MEDS: METHADONE 10 MG TAB PO SCH (08:13)
[2016-07-31] MEDS: ASPIRIN 81 MG TAB PO SCH (08:13)
[2016-07-31 08:21] VITALS: BP 155/93; RESP 18
[2016-07-31] MEDS: SOD CHLORIDE 0.45% 1,000 ML IV SCH ×4 (13:20→21:42)
--- NOTE | 2016-07-31 15:43 | CONS ---
Date/Time of Note Date/Time of Note DATE: 07/31/16 TIME: 15:41 Assessment/Plan Assessment/Plan Chief Complaint/Hosp Course SUBJECTIVE: Patient is alert, lying comfortably in bed. No fevers. MICROBIOLOGY: Cultures, preliminary negative. Wound culture +strep/Staph. ANTIMICROBIALS: Rocephin PHYSICAL EXAMINATION: GENERAL: Obese, well-developed, middle-aged man, who is alert, in no distress. HEENT: Head atraumatic, normocephalic. Sclerae are anicteric. Buccal mucosa pink. NECK: Supple. CHEST: Chest rise is symmetrical. Breath sounds clear. HEART: S1, S2. ABDOMEN: Soft, bowel tones present. EXTREMITIES: With left lower extremity edema and erythema, with some fluctuance. ASSESSMENT: 1. Left lower extremity cellulitis, poss abscess. 2. Systemic inflammatory response syndrome. 3. History of drug abuse, in remission, on methadone. PLAN: The patient remains stable. Continue abx. Keep lower extremity elevated. [facility] staff Problems: Consultation Date/Type/Reason Admit Date/Time Jul 27, 2016 at 11:15 Type of Consultation: ID Exam/Review of Systems Vital Signs Vitals Vital Signs Date Time Temp Pulse Resp B/P Pulse Ox O2 Delivery O2 Flow Rate FiO2 07/31/16 08:21 98.2 85 18 155/93 99 07/27/16 12:56 Room Air Intake and Output 07/30/16 07/30/16 07/31/16 14:59 22:59 06:59 Intake Total 250 ml 1670 ml 1845 ml Balance 250 ml 1670 ml 1845 ml Results Result Diagram: 07/30/16 0445 07/30/16 0445 Results 24 hrs Laboratory Tests Test 07/30/16 19:50 Vancomycin Level Trough 12.3 Medications Medications Current Medications Sodium Chloride (1/2 NS) 1,000 ml @ 75 mls/hr [id number] IV Last administered on 07/30/16t 05:07; Admin Dose 75 MLS/HR; Start 07/27/16 at 16:00 Lorazepam (Ativan) 0.5 mg Q8H PRN PO ANXIETY; Start 07/27/16 at 16:00 Ondansetron HCl (Zofran Inj) 4 mg Q6H PRN IV NAUSEA AND/OR VOMITING; Start at 16:00 Acetaminophen (Tylenol Tab) 650 mg Q6H PRN PO PAIN LEVEL 1-3 OR FEVER Last administered on 07/27/16 19:56; Admin Dose 650 MG; Start 07/27/16 at 16:00 Oxycodone/ Acetaminophen (Percocet (5/ 325)) 1 tab Q6H PRN PO PAIN LEVEL 4-6 Last administered on 07/30/16 01:27; Admin Dose 1 TAB; Start 07/27/16 at 16:00 Morphine Sulfate (morphine) 1 mg Q4H PRN IV PAIN LEVEL 7-10 Last administered on 07/31/16 08:09; Admin Dose 1 MG; Start 07/27/16 at 16:00 Docusate Sodium (Colace) 100 mg Q12H PRN PO CONSTIPATION; Start 07/27/16 at 16: 00 Bisacodyl (Dulcolax) 5 mg DAILY PRN PO CONSTIPATION Last administered on 08:01; Admin Dose 5 MG; Start 07/27/16 at 16:00 Famotidine (Pepcid) 20 mg Q12 PO Last administered on 07/31/16 08:13; Admin Dose 20 MG; Start 07/27/16 at 21:00 Methadone HCl (Methadone) 100 mg DAILY PO Last administered on 07/31/16 08:13 ; Admin Dose 100 MG; Start 07/28/16 at 09:00 Aspirin 81 mg 81 mg DAILY PO Last administered on 07/31/16 08:13; Admin Dose 81 MG; Start 07/28/16 at 09:00 Vancomycin HCl 1.25 gm/Sodium Chloride 250 ml @ 83.333 mls/ hr Q8H IVPB Last administered on 07/31/16 11:38; Admin Dose 83.333 MLS/HR; Start 07/29/16 at 12: 30 Ceftriaxone Sodium (Rocephin) 50 ml @ 100 mls/hr Q24H IVPB Last administered on 07/30/16 17:00; Admin Dose 100 MLS/HR; Start 07/29/16 at 17:00 Silver Sulfadiazine (Thermazene 1% 25 Gm) 1 applic BID TOP ; Start 07/31/16 at 21:00 YOSELIN BLAKE NP Jul 31, 2016 15:42
--- NOTE | 2016-07-31 16:38 | PN ---
DATE: 07/31/2016 SUBJECTIVE: Chart reviewed. ID followup noted. The patient is saturating 99%. PHYSICAL EXAMINATION: VITAL SIGNS: Blood pressure 139/81, pulse 77, respiration 18, temperature 98.8. HEENT: Pupils are equal and reactive to light. NECK: Supple, no JVD noted, no cervical lymphadenopathy noted, no carotid bruits heard. LUNGS: Fair breath sounds bilaterally. CARDIOVASCULAR: S1, S2 normal. ABDOMEN: Soft, nontender, no megaly or masses noted. EXTREMITIES: Edema on the left lower extremity present . NEUROLOGIC: No changes. IMPRESSION: 1. Left lower extremity cellulitis. 2. SIRS. 3. History of drug abuse. RECOMMENDATIONS: 1. ID recommendations noted. 2. Continue antibiotics. 3. Follow up labs. Dictated By: UMANG PEOPLES MD, MA/JODIE Conf#: [id number] DID#: [id number]
[2016-07-31] MEDS: CEFTRIAXONE 1 GM/50 ML (PMX) 50 ML IVPB SCH (17:01)
[2016-07-31 19:56] VITALS: BP 151/96; RESP 18
[2016-07-31] MEDS: SILVER SULFADIAZINE 1% 25 GM CR TOP SCH (20:32)
[2016-08-01] MEDS: morphine 2 MG INJ IV PRN ×3 (06:18→20:40)
[2016-08-01] MEDS: SOD CHLORIDE 0.45% 1,000 ML IV SCH ×2 (06:20→23:37)
[2016-08-01 06:49] LABS: CREATININE 0.54 mg/dl (0.61-1.24)
[2016-08-01 07:48] VITALS: BP 142/97; RESP 16
[2016-08-01] MEDS: FAMOTIDINE 20 MG TAB PO SCH ×2 (09:03→20:36)
[2016-08-01] MEDS: SILVER SULFADIAZINE 1% 25 GM CR TOP SCH ×2 (09:03→20:36)
[2016-08-01] MEDS: ASPIRIN 81 MG TAB PO SCH (09:03)
[2016-08-01] MEDS: METHADONE 10 MG TAB PO SCH (09:04)
--- NOTE | 2016-08-01 14:14 | CONS ---
Date/Time of Note Date/Time of Note DATE: 08/01/16 TIME: 14:13 Assessment/Plan Assessment/Plan Chief Complaint/Hosp Course SUBJECTIVE: Patient is alert, lying comfortably in bed. No fevers. MICROBIOLOGY: Wound culture +strep/Staph. ANTIMICROBIALS: Rocephin PHYSICAL EXAMINATION: GENERAL: Obese, well-developed, middle-aged man, who is alert, in no distress. HEENT: Head atraumatic, normocephalic. Sclerae are anicteric. Buccal mucosa pink. NECK: Supple. CHEST: Chest rise is symmetrical. Breath sounds clear. HEART: S1, S2. ABDOMEN: Soft, bowel tones present. EXTREMITIES: With left lower extremity edema and erythema, with some fluctuance. ASSESSMENT: 1. Left lower extremity cellulitis, poss abscess. 2. Systemic inflammatory response syndrome. 3. History of drug abuse, in remission, on methadone. PLAN: The patient remains stable. Continue abx/ lower extremity elevation. DW staff Problems: Consultation Date/Type/Reason Admit Date/Time Jul 27, 2016 at 11:15 Type of Consultation: ID Exam/Review of Systems Vital Signs Vitals Vital Signs Date Time Temp Pulse Resp B/P Pulse Ox O2 Delivery O2 Flow Rate FiO2 08/01/16 07:48 98.1 74 16 142/97 94 Intake and Output 07/31/16 07/31/16 08/01/16 15:00 23:00 07:00 Intake Total 1895 ml 1740 ml Balance 1895 ml 1740 ml Results Result Diagram: 07/30/16 0445 08/01/16 0520 Results 24 hrs Laboratory Tests Test 08/01/16 05:20 Blood Urea Nitrogen 6 L Creatinine 0.54 L Medications Medications Current Medications Sodium Chloride (1/2 NS) 1,000 ml @ 75 mls/hr [id number] IV Last administered on 08/01/16t 06:20; Admin Dose 75 MLS/HR; Start 07/27/16 at 16:00 Lorazepam (Ativan) 0.5 mg Q8H PRN PO ANXIETY; Start 07/27/16 at 16:00 Ondansetron HCl (Zofran Inj) 4 mg Q6H PRN IV NAUSEA AND/OR VOMITING; Start at 16:00 Acetaminophen (Tylenol Tab) 650 mg Q6H PRN PO PAIN LEVEL 1-3 OR FEVER Last administered on 07/27/16 19:56; Admin Dose 650 MG; Start 07/27/16 at 16:00 Oxycodone/ Acetaminophen (Percocet (5/ 325)) 1 tab Q6H PRN PO PAIN LEVEL 4-6 Last administered on 07/30/16 01:27; Admin Dose 1 TAB; Start 07/27/16 at 16:00 Morphine Sulfate (morphine) 1 mg Q4H PRN IV PAIN LEVEL 7-10 Last administered on 08/01/16 06:18; Admin Dose 1 MG; Start 07/27/16 at 16:00 Docusate Sodium (Colace) 100 mg Q12H PRN PO CONSTIPATION; Start 07/27/16 at 16: 00 Bisacodyl (Dulcolax) 5 mg DAILY PRN PO CONSTIPATION Last administered on 08:01; Admin Dose 5 MG; Start 07/27/16 at 16:00 Famotidine (Pepcid) 20 mg Q12 PO Last administered on 08/01/16 09:03; Admin Dose 20 MG; Start 07/27/16 at 21:00 Methadone HCl (Methadone) 100 mg DAILY PO Last administered on 08/01/16 09:04 ; Admin Dose 100 MG; Start 07/28/16 at 09:00 Aspirin 81 mg 81 mg DAILY PO Last administered on 08/01/16 09:03; Admin Dose 81 MG; Start 07/28/16 at 09:00 Ceftriaxone Sodium (Rocephin) 50 ml @ 100 mls/hr Q24H IVPB Last administered on 07/31/16 17:01; Admin Dose 100 MLS/HR; Start 07/29/16 at 17:00 Silver Sulfadiazine (Thermazene 1% 25 Gm) 1 applic BID TOP Last administered on 08/01/16 09:03; Admin Dose 1 APPLIC; Start 07/31/16 at 21:00 YOSELIN BLAKE NP Aug 01, 2016 14:14
--- NOTE | 2016-08-01 15:07 | PN ---
Date/Time of Note Date/Time of Note DATE: 08/01/16 TIME: 15:03 Assessment/Plan VTE Prophylaxis VTE Prophylaxis Intervention: LMWH Lines/Catheters IV Catheter Type (from Nrs): Peripheral IV Urinary Cath still in place: No Assessment/Plan Assessment/Plan 1. Left lower extremity cellulitis, on Rocephin, follow up with ID 2. Systemic inflammatory response syndrome. 3. History of drug abuse, in remission, on methadone. Subjective 24 Hr Interval Summary Free Text/Dictation afebrile. left leg pain Exam/Review of Systems Vital Signs Vitals Vital Signs Date Time Temp Pulse Resp B/P Pulse Ox O2 Delivery O2 Flow Rate FiO2 08/01/16 07:48 98.1 74 16 142/97 94 Intake and Output 07/31/16 07/31/16 08/01/16 15:00 23:00 07:00 Intake Total 1895 ml 1740 ml Balance 1895 ml 1740 ml Exam Constitutional: alert, oriented, well developed Psych: nl mood/affect, no complaints Head: atraumatic, normocephalic Eyes: EOMI, PERRL, nl conjunctiva, nl lids ENMT: nl external ears & nose, nl lips & teeth, nl nasal mucosa & septum Neck: non-tender, supple Respiratory: clear to auscultation, normal air movement, No congested cough, No crackles/rales, No diminished breath sounds, No intercostal retraction, No labored breathing, No other, No respirations, No tactile fremitus, No wheezing Cardiovascular: nl pulses, regular rate and rhythm, No S3, No S4, No bruits, No diastolic murmur, No edema, No gallop, No irregular rhythm, No jugular venous distention (JVD), No murmurs/extra sounds, No other, No rub, No systolic murmur Gastrointestinal: nl liver, spleen, non-tender, soft, No ascites, No bowel sounds, No distended, No firm, No hepatomegaly, No mass , No other, No rebound or guarding, No splenomegaly, No surgical scars, No tender Musculoskeletal: nl extremities to inspection Extremities: other (right lower extremity lesion) 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, nl mental status, nl speech, nl strength Results Result Diagram: 07/30/16 0445 08/01/16 0520 Results 24 hrs Laboratory Tests Test 08/01/16 05:20 Blood Urea Nitrogen 6 L Creatinine 0.54 L Medications Medications Current Medications Sodium Chloride (1/2 NS) 1,000 ml @ 75 mls/hr [id number] IV Last administered on 08/01/16 06:20; Admin Dose 75 MLS/HR; Start 07/27/16 at 16:00 Lorazepam (Ativan) 0.5 mg Q8H PRN PO ANXIETY; Start 07/27/16 at 16:00 Ondansetron HCl (Zofran Inj) 4 mg Q6H PRN IV NAUSEA AND/OR VOMITING; Start at 16:00 Acetaminophen (Tylenol Tab) 650 mg Q6H PRN PO PAIN LEVEL 1-3 OR FEVER Last administered on 07/27/16 19:56; Admin Dose 650 MG; Start 07/27/16 at 16:00 Oxycodone/ Acetaminophen (Percocet (5/ 325)) 1 tab Q6H PRN PO PAIN LEVEL 4-6 Last administered on 07/30/16 01:27; Admin Dose 1 TAB; Start 07/27/16 at 16:00 Morphine Sulfate (morphine) 1 mg Q4H PRN IV PAIN LEVEL 7-10 Last administered on 08/01/16 06:18; Admin Dose 1 MG; Start 07/27/16 at 16:00 Docusate Sodium (Colace) 100 mg Q12H PRN PO CONSTIPATION; Start 07/27/16 at 16: 00 Bisacodyl (Dulcolax) 5 mg DAILY PRN PO CONSTIPATION Last administered on 08:01; Admin Dose 5 MG; Start 07/27/16 at 16:00 Famotidine (Pepcid) 20 mg Q12 PO Last administered on 08/01/16 09:03; Admin Dose 20 MG; Start 07/27/16 at 21:00 Methadone HCl (Methadone) 100 mg DAILY PO Last administered on 08/01/16 09:04 ; Admin Dose 100 MG; Start 07/28/16 at 09:00 Aspirin 81 mg 81 mg DAILY PO Last administered on 08/01/16 09:03; Admin Dose 81 MG; Start 07/28/16 at 09:00 Ceftriaxone Sodium (Rocephin) 50 ml @ 100 mls/hr Q24H IVPB Last administered on 07/31/16 17:01; Admin Dose 100 MLS/HR; Start 07/29/16 at 17:00 Silver Sulfadiazine (Thermazene 1% 25 Gm) 1 applic BID TOP Last administered on 08/01/16 09:03; Admin Dose 1 APPLIC; Start 07/31/16 at 21:00 CHRIS ROA MD Aug 01, 2016 15:07
[2016-08-01] MEDS: CEFTRIAXONE 1 GM/50 ML (PMX) 50 ML IVPB SCH (17:46)
[2016-08-01] MEDS: ENOXAPARIN 40 MG/0.4 ML SYG SC SCH (17:47)
[2016-08-01 20:49] VITALS: BP 135/85; RESP 18
[2016-08-02] MEDS: BISACODYL (EC) 5 MG TAB PO PRN (06:47)
[2016-08-02] MEDS: morphine 2 MG INJ IV PRN ×3 (07:29→23:53)
[2016-08-02 08:02] VITALS: BP 136/90; RESP 18
[2016-08-02] MEDS: ASPIRIN 81 MG TAB PO SCH (08:16)
[2016-08-02] MEDS: METHADONE 10 MG TAB PO SCH (08:16)
[2016-08-02] MEDS: FAMOTIDINE 20 MG TAB PO SCH ×2 (08:16→21:08)
[2016-08-02] MEDS: ENOXAPARIN 40 MG/0.4 ML SYG SC SCH (08:18)
[2016-08-02] MEDS: SILVER SULFADIAZINE 1% 25 GM CR TOP SCH ×2 (08:18→21:08)
--- NOTE | 2016-08-02 14:35 | CONS ---
Date/Time of Note Date/Time of Note DATE: 08/02/16 TIME: 14:35 Assessment/Plan Assessment/Plan Chief Complaint/Hosp Course SUBJECTIVE: Patient is alert, lying comfortably in bed. No fevers. MICROBIOLOGY: Wound culture +strep/Staph. ANTIMICROBIALS: Rocephin PHYSICAL EXAMINATION: GENERAL: Obese, well-developed, middle-aged man, who is alert, in no distress. HEENT: Head atraumatic, normocephalic. Sclerae are anicteric. Buccal mucosa pink. NECK: Supple. CHEST: Chest rise is symmetrical. Breath sounds clear. HEART: S1, S2. ABDOMEN: Soft, bowel tones present. EXTREMITIES: With left lower extremity edema and erythema, with some fluctuance. ASSESSMENT: 1. Left lower extremity cellulitis, poss abscess. 2. Systemic inflammatory response syndrome. 3. History of drug abuse, in remission, on methadone. PLAN: The patient remains stable. Continue abx/ lower extremity elevation. DW staff Problems: Consultation Date/Type/Reason Admit Date/Time Jul 27, 2016 at 11:15 Type of Consultation: ID Exam/Review of Systems Vital Signs Vitals Vital Signs Date Time Temp Pulse Resp B/P Pulse Ox O2 Delivery O2 Flow Rate FiO2 08/02/16 08:02 97.5 80 18 136/90 96 Intake and Output 08/01/16 08/01/16 08/02/16 15:00 23:00 07:00 Intake Total 1765 ml 1225 ml Balance 1765 ml 1225 ml Results Result Diagram: 07/30/16 0445 08/01/16 0520 Medications Medications Current Medications Sodium Chloride (1/2 NS) 1,000 ml @ 75 mls/hr [id number] IV Last administered on 08/01/16 23:37; Admin Dose 75 MLS/HR; Start 07/27/16 at 16:00 Lorazepam (Ativan) 0.5 mg Q8H PRN PO ANXIETY; Start 07/27/16 at 16:00 Ondansetron HCl (Zofran Inj) 4 mg Q6H PRN IV NAUSEA AND/OR VOMITING; Start at 16:00 Acetaminophen (Tylenol Tab) 650 mg Q6H PRN PO PAIN LEVEL 1-3 OR FEVER Last administered on 07/27/16 19:56; Admin Dose 650 MG; Start 07/27/16 at 16:00 Oxycodone/ Acetaminophen (Percocet (5/ 325)) 1 tab Q6H PRN PO PAIN LEVEL 4-6 Last administered on 07/30/16 01:27; Admin Dose 1 TAB; Start 07/27/16 at 16:00 Morphine Sulfate (morphine) 1 mg Q4H PRN IV PAIN LEVEL 7-10 Last administered on 08/02/16 07:29; Admin Dose 1 MG; Start 07/27/16 at 16:00 Docusate Sodium (Colace) 100 mg Q12H PRN PO CONSTIPATION; Start 07/27/16 at 16: 00 Bisacodyl (Dulcolax) 5 mg DAILY PRN PO CONSTIPATION Last administered on 06:47; Admin Dose 5 MG; Start 07/27/16 at 16:00 Famotidine (Pepcid) 20 mg Q12 PO Last administered on 08/02/16 08:16; Admin Dose 20 MG; Start 07/27/16 at 21:00 Methadone HCl (Methadone) 100 mg DAILY PO Last administered on 08/02/16 08:16 ; Admin Dose 100 MG; Start 07/28/16 at 09:00 Aspirin 81 mg 81 mg DAILY PO Last administered on 08/02/16 08:16; Admin Dose 81 MG; Start 07/28/16 at 09:00 Ceftriaxone Sodium (Rocephin) 50 ml @ 100 mls/hr Q24H IVPB Last administered on 08/01/16 17:46; Admin Dose 100 MLS/HR; Start 07/29/16 at 17:00 Silver Sulfadiazine (Thermazene 1% 25 Gm) 1 applic BID TOP Last administered on 08/02/16 08:18; Admin Dose 1 APPLIC; Start 07/31/16 at 21:00 Enoxaparin Sodium (Lovenox) 40 mg DAILY SC Last administered on 08/02/16 08:18 ; Admin Dose 40 MG; Start 08/01/16 at 15:30 YOSELIN BLAKE NP Aug 02, 2016 14:35
--- NOTE | 2016-08-02 15:23 | PN ---
Date/Time of Note Date/Time of Note DATE: 08/02/16 TIME: 15:21 Assessment/Plan VTE Prophylaxis VTE Prophylaxis Intervention: LMWH Lines/Catheters IV Catheter Type (from Nrs): Peripheral IV Urinary Cath still in place: No Assessment/Plan Assessment/Plan 1. Left lower extremity cellulitis, on Rocephin, improving, discussed with ID 2. Systemic inflammatory response syndrome. 3. History of drug abuse, in remission, on methadone. 4. DVT prophylaxis: lovenox Subjective 24 Hr Interval Summary Free Text/Dictation less leg swelling/redness Exam/Review of Systems Vital Signs Vitals Vital Signs Date Time Temp Pulse Resp B/P Pulse Ox O2 Delivery O2 Flow Rate FiO2 08/02/16 08:02 97.5 80 18 136/90 96 Intake and Output 08/01/16 08/01/16 08/02/16 15:00 23:00 07:00 Intake Total 1765 ml 1225 ml Balance 1765 ml 1225 ml Exam Constitutional: alert, oriented, well developed Psych: nl mood/affect, no complaints Head: atraumatic, normocephalic Eyes: EOMI, PERRL, nl conjunctiva, nl lids ENMT: nl external ears & nose, nl lips & teeth, nl nasal mucosa & septum Neck: non-tender, supple Respiratory: clear to auscultation, normal air movement, No congested cough, No crackles/rales, No diminished breath sounds, No intercostal retraction, No labored breathing, No other, No respirations, No tactile fremitus, No wheezing Cardiovascular: nl pulses, regular rate and rhythm, No S3, No S4, No bruits, No diastolic murmur, No edema, No gallop, No irregular rhythm, No jugular venous distention (JVD), No murmurs/extra sounds, No other, No rub, No systolic murmur Gastrointestinal: nl liver, spleen, non-tender, soft, No ascites, No bowel sounds, No distended, No firm, No hepatomegaly, No mass , No other, No rebound or guarding, No splenomegaly, No surgical scars, No tender Musculoskeletal: nl extremities to inspection Extremities: other (left lower extremity redness, swelling, less than that of yesterday) Neurological: [employer] II-XII intact, nl mental status, nl speech, nl strength Results Result Diagram: 07/30/16 5005 08/01/16 0520 Medications Medications Current Medications Sodium Chloride (1/2 NS) 1,000 ml @ 75 mls/hr [id number] IV Last administered on 08/01/16 23:37; Admin Dose 75 MLS/HR; Start 07/27/16 at 16:00 Lorazepam (Ativan) 0.5 mg Q8H PRN PO ANXIETY; Start 07/27/16 at 16:00 Ondansetron HCl (Zofran Inj) 4 mg Q6H PRN IV NAUSEA AND/OR VOMITING; Start at 16:00 Acetaminophen (Tylenol Tab) 650 mg Q6H PRN PO PAIN LEVEL 1-3 OR FEVER Last administered on 07/27/16 19:56; Admin Dose 650 MG; Start 07/27/16 at 16:00 Oxycodone/ Acetaminophen (Percocet (5/ 325)) 1 tab Q6H PRN PO PAIN LEVEL 4-6 Last administered on 07/30/16 01:27; Admin Dose 1 TAB; Start 07/27/16 at 16:00 Morphine Sulfate (morphine) 1 mg Q4H PRN IV PAIN LEVEL 7-10 Last administered on 08/02/16 07:29; Admin Dose 1 MG; Start 07/27/16 at 16:00 Docusate Sodium (Colace) 100 mg Q12H PRN PO CONSTIPATION; Start 07/27/16 at 16: 00 Bisacodyl (Dulcolax) 5 mg DAILY PRN PO CONSTIPATION Last administered on 06:47; Admin Dose 5 MG; Start 07/27/16 at 16:00 Famotidine (Pepcid) 20 mg Q12 PO Last administered on 08/02/16 08:16; Admin Dose 20 MG; Start 07/27/16 at 21:00 Methadone HCl (Methadone) 100 mg DAILY PO Last administered on 08/02/16 08:16 ; Admin Dose 100 MG; Start 07/28/16 at 09:00 Aspirin 81 mg 81 mg DAILY PO Last administered on 08/02/16 08:16; Admin Dose 81 MG; Start 07/28/16 at 09:00 Ceftriaxone Sodium (Rocephin) 50 ml @ 100 mls/hr Q24H IVPB Last administered on 08/01/16 17:46; Admin Dose 100 MLS/HR; Start 07/29/16 at 17:00 Silver Sulfadiazine (Thermazene 1% 25 Gm) 1 applic BID TOP Last administered on 08/02/16 08:18; Admin Dose 1 APPLIC; Start 07/31/16 at 21:00 Enoxaparin Sodium (Lovenox) 40 mg DAILY SC Last administered on 08/02/16 08:18 ; Admin Dose 40 MG; Start 08/01/16 at 15:30 CHRIS ROA MD Aug 02, 2016 15:23
[2016-08-02] MEDS: CEFTRIAXONE 1 GM/50 ML (PMX) 50 ML IVPB SCH (16:36)
[2016-08-02] MEDS: SOD CHLORIDE 0.45% 1,000 ML IV SCH ×2 (18:40→23:55)
[2016-08-02 22:54] VITALS: BP 158/92; RESP 18
[2016-08-02] MEDS ORDERED: GENTAMICIN 0.1% 15 GM OINT TOP ONE (23:00)
[2016-08-02 23:30] VITALS: BP 142/85
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
[2016-08-03] MEDS: FAMOTIDINE 20 MG TAB PO SCH ×2 (08:01→19:59)
[2016-08-03] MEDS: ASPIRIN 81 MG TAB PO SCH (08:01)
[2016-08-03] MEDS: ENOXAPARIN 40 MG/0.4 ML SYG SC SCH (08:01)
[2016-08-03] MEDS: SILVER SULFADIAZINE 1% 25 GM CR TOP SCH ×2 (08:02→19:59)
[2016-08-03] MEDS: METHADONE 10 MG TAB PO SCH (08:02)
--- NOTE | 2016-08-03 14:08 | CONS ---
Date/Time of Note Date/Time of Note DATE: 08/03/16 TIME: 14:07 Assessment/Plan Assessment/Plan Chief Complaint/Hosp Course SUBJECTIVE: No events. No fevers. MICROBIOLOGY: Wound culture +strep/Staph. ANTIMICROBIALS: Rocephin PHYSICAL EXAMINATION: GENERAL: Obese, well-developed, middle-aged man, who is alert, in no distress. HEENT: Head atraumatic, normocephalic. Sclerae are anicteric. Buccal mucosa pink. NECK: Supple. CHEST: Chest rise is symmetrical. Breath sounds clear. HEART: S1, S2. ABDOMEN: Soft, bowel tones present. EXTREMITIES: With left lower extremity edema and erythema, with some fluctuance. ASSESSMENT: 1. Left lower extremity cellulitis, poss abscess. 2. Systemic inflammatory response syndrome. 3. History of drug abuse, in remission, on methadone. PLAN: The patient remains stable. Continue abx/ lower extremity elevation, f/u podiatry rec-s. DW staff Problems: Consultation Date/Type/Reason Admit Date/Time Jul 27, 2016 at 11:15 Type of Consultation: ID Exam/Review of Systems Vital Signs Vitals Vital Signs Date Time Temp Pulse Resp B/P Pulse Ox O2 Delivery O2 Flow Rate FiO2 08/02/16 23:30 142/85 08/02/16 22:54 98.3 74 18 97 Intake and Output 08/02/16 08/02/16 08/03/16 15:00 23:00 07:00 Intake Total 2420 ml 1265 ml Balance 2420 ml 1265 ml Results Result Diagram: 07/30/16 0445 08/01/16 0520 Medications Medications Current Medications Sodium Chloride (1/2 NS) 1,000 ml @ 75 mls/hr [id number] IV Last administered on 08/02/16 23:55; Admin Dose 75 MLS/HR; Start 07/27/16 at 16:00 Lorazepam (Ativan) 0.5 mg Q8H PRN PO ANXIETY; Start 07/27/16 at 16:00 Ondansetron HCl (Zofran Inj) 4 mg Q6H PRN IV NAUSEA AND/OR VOMITING; Start at 16:00 Acetaminophen (Tylenol Tab) 650 mg Q6H PRN PO PAIN LEVEL 1-3 OR FEVER Last administered on 07/27/16 19:56; Admin Dose 650 MG; Start 07/27/16 at 16:00 Oxycodone/ Acetaminophen (Percocet (5/ 325)) 1 tab Q6H PRN PO PAIN LEVEL 4-6 Last administered on 07/30/16 01:27; Admin Dose 1 TAB; Start 07/27/16 at 16:00 Morphine Sulfate (morphine) 1 mg Q4H PRN IV PAIN LEVEL 7-10 Last administered on 08/02/16 23:53; Admin Dose 1 MG; Start 07/27/16 at 16:00 Docusate Sodium (Colace) 100 mg Q12H PRN PO CONSTIPATION; Start 07/27/16 at 16: 00 Bisacodyl (Dulcolax) 5 mg DAILY PRN PO CONSTIPATION Last administered on 06:47; Admin Dose 5 MG; Start 07/27/16 at 16:00 Famotidine (Pepcid) 20 mg Q12 PO Last administered on 08/03/16 08:01; Admin Dose 20 MG; Start 07/27/16 at 21:00 Methadone HCl (Methadone) 100 mg DAILY PO Last administered on 08/03/16 08:02 ; Admin Dose 100 MG; Start 07/28/16 at 09:00 Aspirin 81 mg 81 mg DAILY PO Last administered on 08/03/16 08:01; Admin Dose 81 MG; Start 07/28/16 at 09:00 Ceftriaxone Sodium (Rocephin) 50 ml @ 100 mls/hr Q24H IVPB Last administered on 08/02/16 16:36; Admin Dose 100 MLS/HR; Start 07/29/16 at 17:00 Silver Sulfadiazine (Thermazene 1% 25 Gm) 1 applic BID TOP Last administered on 08/03/16 08:02; Admin Dose 1 APPLIC; Start 07/31/16 at 21:00 Enoxaparin Sodium (Lovenox) 40 mg DAILY SC Last administered on 08/03/16 08:01 ; Admin Dose 40 MG; Start 08/01/16 at 15:30 YOSELIN BLAKE NP Aug 03, 2016 14:08
--- NOTE | 2016-08-03 15:10 | PN ---
DATE: 08/03/2016 SUBJECTIVE DATA: Left lower extremity pain well controlled. The patient remains afebrile. OBJECTIVE DATA: VITAL SIGNS: Temperature 98.5, pulse rate 74, respiratory rate 18, blood pressure 142/84, oxygen saturation 97% on room air. GENERAL: This is an obese male patient lying in bed in no apparent distress. HEENT: Head normocephalic and atraumatic. Eyes: Anicteric sclerae. Conjunctivae clear. ENT: Nasal septum is midline. Oral mucosa is moist. NECK: Supple. No JVD noticed. RESPIRATORY: Bilaterally clear to auscultation. No adventitious breath sounds heard. No use of accessory muscles of respiration. CARDIAC: Regular rate and rhythm. No murmurs heard. ABDOMEN: Soft, nontender and nondistended. Bowel sounds positive in all 4 quadrants. GENITOURINARY: Deferred. EXTREMITIES: No cyanosis, no clubbing. Erythema and edema of the left calf circumferentially. There is a small ulceration on medial anterior lower leg approximately 1 cm in diameter. A blister on the posterior calf measuring 5 x 1 cm with clear yellowish fluid. Peripheral pulses palpable. NEUROLOGIC: The patient is awake, alert and oriented. Cranial nerves are grossly intact. LABORATORY AND DIAGNOSTIC DATA: No labs for today. ASSESSMENT AND PLAN: 1. Left lower extremity cellulitis. Left lower extremity wound culture positive for coagulase-negative Staphylococcus and Streptococcus pyogens. On antibiotics as per infectious diseases. 2. Systemic inflammatory response syndrome secondary to underlying left lower extremity cellulitis. No evidence of septic shock. Continue antibiotics. 3. History of drug abuse. Currently in remission. Continue methadone. 4. Nicotine use. Cessation advised. 5. Obesity. BMI of 30.7 kilograms per meter squared. Weight reduction advised. 6. Fluid, electrolytes and nutrition. Regular diet as tolerated. 7. Deep venous thrombosis prophylaxis, subcutaneous Lovenox. 8. Gastrointestinal prophylaxis, H2 receptor blockers. PLAN: Continue antibiotics as per infectious diseases. Await clearance from consultants before discharge. The case was discussed with Dr. Recinos. KIAN RECINOS MD, AM/JODIE Conf#: [id number] DID#: [id number] [facility]
[2016-08-03] MEDS: CEFTRIAXONE 1 GM/50 ML (PMX) 50 ML IVPB SCH (16:36)
[2016-08-03] MEDS: morphine 2 MG INJ IV PRN (17:14)
[2016-08-03] MEDS: SOD CHLORIDE 0.45% 1,000 ML IV SCH (19:58)
[2016-08-03] MEDS: OXYCODONE/ACETAMINOPHEN (5/325) TAB PO PRN (20:08)
[2016-08-03 21:03] VITALS: BP 158/98; RESP 19
[2016-08-04] MEDS: SOD CHLORIDE 0.45% 1,000 ML IV SCH ×2 (04:02→10:40)
[2016-08-04] MEDS: morphine 2 MG INJ IV PRN (05:17)
[2016-08-04 05:54] LABS: ADD SCAN DIFF NO
[2016-08-04 05:59] LABS: BASOPHIL # 0.1 10^3/ul (0.0-0.1); BASOPHILS % 0.8 % (0.0-2.0); EOSINOPHILS # 0.5 10^3/ul (0.0-0.5); EOSINOPHILS % 6.8 % (0.0-7.0); HEMATOCRIT 43.5 % (42.0-52.0); HEMOGLOBIN 14.3 g/dl (14.0-18.0); LYMPHOCYTES # 3.2 10^3/ul (0.8-2.9); LYMPHOCYTES % 42.1 % (15.0-51.0); MEAN CORPUSCULAR HEMOGLOBIN 30.5 pg (29.0-33.0); MEAN CORPUSCULAR HGB CONC 32.9 g/dl (32.0-37.0); MEAN CORPUSCULAR VOLUME 92.8 fl (82.0-101.0); MEAN PLATELET VOLUME 9.5 fl (7.4-10.4); MONOCYTE # 0.8 10^3/ul (0.3-0.9); MONOCYTES % 10.1 % (0.0-11.0); NEUTROPHIL # 2.8 10^3/ul (1.6-7.5); PLATELET COUNT 348 10^3/UL (140-415); RED BLOOD COUNT 4.69 10^6/ul (4.70-6.10); WHITE BLOOD COUNT 7.5 10^3/ul (4.8-10.8)
[2016-08-04 06:26] LABS: PHOSPHORUS 3.8 mg/dl (2.5-4.9)
[2016-08-04 06:27] LABS: CHOL/HDL RATIO 5.1 RATIO; MAGNESIUM 1.9 mg/dl (1.7-2.5)
[2016-08-04 06:30] LABS: POTASSIUM 4.3 mmol/L (3.5-5.1)
[2016-08-04 06:32] LABS: CREATININE 0.69 mg/dl (0.61-1.24)
[2016-08-04 06:33] LABS: CALCIUM 9.1 mg/dl (8.4-10.2)
[2016-08-04 08:37] VITALS: BP 138/85; RESP 18
[2016-08-04] MEDS: SILVER SULFADIAZINE 1% 25 GM CR TOP SCH (09:00)
[2016-08-04] MEDS: FAMOTIDINE 20 MG TAB PO SCH (09:01)
[2016-08-04] MEDS: ENOXAPARIN 40 MG/0.4 ML SYG SC SCH (09:01)
[2016-08-04] MEDS: ASPIRIN 81 MG TAB PO SCH (09:01)
[2016-08-04] MEDS: METHADONE 10 MG TAB PO SCH (09:02)
--- NOTE | 2016-08-04 13:49 | PDOCDIS ---
Discharge Instructions DIAGNOSIS Discharge Diagnosis: Left lower extremity cellulitis. CONDITION Patient Condition: Stable HOME CARE INSTRUCTIONS: Special Diet: REGULAR FOLLOW UP/APPOINTMENTS Appointments Devonte Guaman MD Specialty: Internal Medicine Office Address: [address] [place], [place] [id number] Office OTHER ORDERS: Other Orders: 1. Regular diet as tolerated. 2. Take medications as per prescription. 3. Keep the left lower extremity elevated while resting. 4. Follow-up with your primary care physician in 2 weeks. If you do not have a primary care physician, please call Dr. Devonte Guaman's office. KIAN DO NP Aug 04, 2016 13:49
[2016-08-04] MEDS ORDERED: Oxycodone/Acetamin (5/325) PO (13:50)
[2016-08-04] MEDS ORDERED: METH10TA2 PO (13:50)
[2016-08-04] MEDS ORDERED: BACTDS PO (13:50)
[2016-08-04] MEDS ORDERED: SSD1C20 TOP (13:50)
--- NOTE | 2016-08-04 14:24 | CONS ---
Date/Time of Note Date/Time of Note DATE: 08/04/16 TIME: 14:21 Assessment/Plan Assessment/Plan Chief Complaint/Hosp Course SUBJECTIVE: No events. No fevers. ANTIMICROBIALS: Rocephin PHYSICAL EXAMINATION: GENERAL: Obese, well-developed, middle-aged man, who is alert, in no distress. HEENT: Head atraumatic, normocephalic. Sclerae are anicteric. Buccal mucosa pink. NECK: Supple. CHEST: Chest rise is symmetrical. Breath sounds clear. HEART: S1, S2. ABDOMEN: Soft, bowel tones present. EXTREMITIES: With left lower extremity edema and erythema, with some fluctuance. ASSESSMENT: 1. Left lower extremity cellulitis, poss abscess. 2. Systemic inflammatory response syndrome. 3. History of drug abuse, in remission, on methadone. PLAN: The patient remains stable. LLE looks better, continue abx, anticipate dc on oral Keflex and Bactrim for 10-14 days DW staff Problems: Consultation Date/Type/Reason Admit Date/Time Jul 27, 2016 at 11:15 Type of Consultation: ID Exam/Review of Systems Vital Signs Vitals Vital Signs Date Time Temp Pulse Resp B/P Pulse Ox O2 Delivery O2 Flow Rate FiO2 08/04/16 08:37 97.9 66 18 138/85 100 Intake and Output 08/03/16 08/03/16 08/04/16 15:00 23:00 07:00 Intake Total 1675 ml 1600 ml Balance 1675 ml 1600 ml Results Result Diagram: 08/04/16 0505 08/04/16 0505 Results 24 hrs Laboratory Tests Test 08/04/16 05:05 White Blood Count 7.5 Red Blood Count 4.69 L Hemoglobin 14.3 Hematocrit 43.5 Mean Corpuscular Volume 92.8 Mean Corpuscular Hemoglobin 30.5 Mean Corpuscular Hemoglobin Concent 32.9 Red Cell Distribution Width 13.0 Platelet Count 348 # Mean Platelet Volume 9.5 Neutrophils % 37.0 L Lymphocytes % 42.1 Monocytes % 10.1 Eosinophils % 6.8 Basophils % 0.8 Nucleated Red Blood Cells % 0.0 Neutrophils # 2.8 Lymphocytes # 3.2 H Monocytes # 0.8 Eosinophils # 0.5 Basophils # 0.1 Nucleated Red Blood Cells # 0.0 Sodium Level 143 Potassium Level 4.3 Chloride Level 103 Carbon Dioxide Level 26 Anion Gap 18 H Blood Urea Nitrogen 10 Creatinine 0.69 Glucose Level 98 Calcium Level 9.1 Phosphorus Level 3.8 Magnesium Level 1.9 Triglycerides Level 113 Cholesterol Level 153 LDL Cholesterol, Calculated 100 HDL Cholesterol 30 Cholesterol/HDL Ratio 5.1 Medications Medications Current Medications Sodium Chloride (1/2 NS) 1,000 ml @ 75 mls/hr [id number] IV Last administered on 08/04/16 04:02; Admin Dose 75 MLS/HR; Start 07/27/16 at 16:00 Lorazepam (Ativan) 0.5 mg Q8H PRN PO ANXIETY; Start 07/27/16 at 16:00 Ondansetron HCl (Zofran Inj) 4 mg Q6H PRN IV NAUSEA AND/OR VOMITING; Start at 16:00 Acetaminophen (Tylenol Tab) 650 mg Q6H PRN PO PAIN LEVEL 1-3 OR FEVER Last administered on 07/27/16 19:56; Admin Dose 650 MG; Start 07/27/16 at 16:00 Oxycodone/ Acetaminophen (Percocet (5/ 325)) 1 tab Q6H PRN PO PAIN LEVEL 4-6 Last administered on 08/03/16 20:08; Admin Dose 1 TAB; Start 07/27/16 at 16:00 Morphine Sulfate (morphine) 1 mg Q4H PRN IV PAIN LEVEL 7-10 Last administered on 08/04/16 05:17; Admin Dose 1 MG; Start 07/27/16 at 16:00 Docusate Sodium (Colace) 100 mg Q12H PRN PO CONSTIPATION; Start 07/27/16 at 16: 00 Bisacodyl (Dulcolax) 5 mg DAILY PRN PO CONSTIPATION Last administered on 06:47; Admin Dose 5 MG; Start 07/27/16 at 16:00 Famotidine (Pepcid) 20 mg Q12 PO Last administered on 08/04/16 09:01; Admin Dose 20 MG; Start 07/27/16 at 21:00 Methadone HCl (Methadone) 100 mg DAILY PO Last administered on 08/04/16 09:02 ; Admin Dose 100 MG; Start 07/28/16 at 09:00 Aspirin 81 mg 81 mg DAILY PO Last administered on 08/04/16 09:01; Admin Dose 81 MG; Start 07/28/16 at 09:00 Ceftriaxone Sodium (Rocephin) 50 ml @ 100 mls/hr Q24H IVPB Last administered on 08/03/16 16:36; Admin Dose 100 MLS/HR; Start 07/29/16 at 17:00 Silver Sulfadiazine (Thermazene 1% 25 Gm) 1 applic BID TOP Last administered on 08/04/16 09:00; Admin Dose 1 APPLIC; Start 07/31/16 at 21:00 Enoxaparin Sodium (Lovenox) 40 mg DAILY SC Last administered on 08/04/16 09:01 ; Admin Dose 40 MG; Start 08/01/16 at 15:30 YOSELIN BLAKE NP Aug 04, 2016 14:24
[2016-08-04] MEDS ORDERED: CEPH500C PO (14:27)
--- NOTE | 2016-08-04 17:06 | DS ---
DATE OF ADMISSION: 07/27/2016 DATE OF DISCHARGE: 08/04/2016 FINAL DIAGNOSES: 1. Left lower extremity cellulitis. 2. Status post systemic inflammatory response syndrome secondary to #1. 3. History of drug abuse, currently in remission. 4. Nicotine use. 5. Obesity. CONSULTATIONS: 1. Dr. Mat Kaur, Infectious Disease. 2. Willie Kemp DPM, Podiatry. HOSPITAL COURSE: This is a 41-year-old male with past medical history of IV drug abuse in remission, and currently on methadone, history of cervical spine abscess, status post surgical intervention, who came to the emergency room with a chief complaint of left lower extremity erythema and edema. The patient denied any recent trauma to the left lower extremity. In the emergency room, the patient was found to have a WBC of 26.7. The patient underwent a left ankle x-ray that did not show any evidence of any osteomyelitis. Provided the patient's history of present illness and the diagnostic findings, a clinical decision was made to admit the patient to inpatient setting to have him further evaluated. The patient was admitted to inpatient medical/surgical floor. Pancultures were obtained. The patient was started on empiric antibiotics. An infectious disease consult and a podiatry consult was called on this patient. The patient underwent a left lower extremity venous Doppler study that was negative for any DVT. The patient's left lower extremity wound culture showed positive coagulase- negative Staphylococcus and streptococcus aerogenes. The patient was maintained on antibiotics as per infectious disease. The patient had no evidence of any septic shock. The patient was seen and evaluated by podiatry and podiatry recommended no surgical intervention, but to continue local wound care and antibiotic therapy. The patient has history of IV drug abuse, currently in remission and on methadone. The patient was continued on methadone for the same. The patient responded well to the treatment strategy and the patient was cleared by consultants to be discharged home on oral antibiotics. DISPOSITION/PLAN: The patient will be discharged home today. Home health will be arranged for daily dressing changes to the left lower extremity. The patient was instructed to take a regular diet as tolerated and to take medications as per prescription. The patient was instructed to keep left lower extremity elevated while resting. He was instructed to follow up with his primary care physician in 2 weeks and if he does not have a primary care physician, please call Dr. Devonte Guaman's office. The patient verbalized understanding of his discharge instructions. CONDITION AT DISCHARGE: Stable. DISCHARGE MEDICATIONS: 1. Keflex 500 mg p.o. q. 8 hours x14 days. 2. Bactrim-DS 1 tablet p.o. b.i.d. x14 days. 3. Methadone 100 mg p.o. daily. 4. Silvadene cream topically application, left lower extremity b.i.d. 5. Percocet 5/325 one tablet p.o. q.6h. p.r.n. pain. PERTINENT LABORATORY AND DIAGNOSTIC DATA: 1. Left ankle x-ray. Satisfactory postoperative appearance of the left ankle ( open reduction internal fixation of the distal fibula with lateral plate and multiple screws). There is no acute fracture. 2. Left lower extremity venous Doppler study. Negative for any DVT. 3. Left ankle wound culture, positive for coagulase-negative Staphylococcus and streptococcus aerogenes. 4. Blood culture x2 negative. 5. Urine culture x1 negative. 6. Latest CBC: WBC 7.5, hemoglobin 14.3, hematocrit 43.5, platelet count 348. 7. Latest BMP: Sodium 142, potassium 4.3, chloride 100, carbon dioxide 26, anion gap 18, BUN 10, creatinine 0.69, glucose 90, calcium 9.1, phosphorus 2.8, magnesium 1.9, hemoglobin A1c 5.2. 7. Lipid panel: Triglycerides 113, total cholesterol 163, LDL 100, HDL 30. At this time, we would like to thank all the consultants for seeing the patient and providing clinical recommendations. The case and management of this patient was fully discussed with Dr. Recinos. Approximately 35 minutes was spent on coordinating discharge on this patient. KIAN RECINOS MD, AM/JODIE Conf#: [id number] DID#: [id number] [id number]
--- NOTE | 2016-08-05 08:36 | CONS ---
DATE OF ADMISSION: 07/27/2016 DATE OF CONSULTATION: 08/04/2016 SUBJECTIVE: Pain left lower extremity / edema / cellulitis. The patient has been empiric antibiotics. There has been decrease in edema or erythema since admission. OBJECTIVE: VITAL SIGNS: Temperature 98.3, pulse 74, respiratory rate 18, pulse oximetry is 96%. EXTREMITIES: Decreased Edema/ erythema with blisters to left calf. There is decreased pain with palpation. No pain with passive range of motion, dorsiflexion/ plantar flexion of ankle. ASSESSMENT: 1. Left calf cellulitis. 2. Edema. 3. Sepsis. 4. History of drug abuse. PLAN: The patient is improving. Continue with topical and IV antibiotics, likely to require at the time of discharge. Recommend discharge planning. Dictated By: MELINA ADAME/JODIE Conf#: [id number] DID#: [id number] [id number]
== END 2016-08-04 16:39 | disposition home health service (06) | DRG 872 ==
LOC: E/R 08:38 → PP2 11:15
PROVIDERS: ADMIT Family Medicine; ATTEND Family Medicine
DX: A41.9 Sepsis, unspecified organism (principal); L03.116 Cellulitis of left lower limb; Z87.898 Personal history of other specified conditions; F17.200 Nicotine dependence, unspecified, uncomplicated; F11.21 Opioid dependence, in remission; B95.0 Streptococcus, group A, as the cause of diseases classified elsewhere; B95.7 Other staphylococcus as the cause of diseases classified elsewhere; E66.9 Obesity, unspecified; Z68.30 Body mass index [BMI] 30.0-30.9, adult
CPT/HCPCS: 36415; 80048; 80053; 80061; 80202; 82565; 83036; 83605; 83735; 84100; 84520; 85025; 85610; 85730; 87040; 87070; 87081; 87086; 93005; 93971; 96374; 96375; 97162; J0696; J1650; J2270; J2543; J3370; J7030; J7050

== ENCOUNTER 2018-02-18 00:14 | Emergency (ER) | END 2018-02-18 05:21 | disposition home or self-care (01) ==